=== PATIENT | male | born 1990 | race Caucasian/White ===

== ENCOUNTER 2017-11-07 17:45 | Emergency (ER) | payer SELFPAY ==
[2017-11-07 17:53] VITALS: BP 148/95; PULSE 112; TEMP 100; BMI 46.6
[2017-11-07] MEDS ORDERED: ACETAMINOPHEN 325 MG TABLET (FP) PO ONE (17:53)
--- NOTE | 2017-11-07 17:53 | PDOC ---
Rapid Medical Evaluation Chief Complaint: Cold Symptoms Time Seen by Provider: 11/07/17 17:51 Medical Evaluation: Allergies Allergy/AdvReac Type Severity Reaction Status Date / Time No Known Allergies Allergy Verified 11/07/17 17:49 11/07/17 17:51 I have performed a brief in-person evaluation of this patient. The patient presents with a chief complaint of: Body aches w/ cough, congestion , nausea and fever x 3 days. Denies pmhx Pertinent physical exam findings:Febrile to 100 and tachy to 116 I have ordered the following: tylenol The patient will proceed to the ED for further evaluation.
--- NOTE | 2017-11-07 18:39 | PDOC ---
History of Present Illness - General Chief Complaint: Cold Symptoms Stated Complaint: COLD SYMPTOMS Time Seen by Provider: 11/07/17 17:51 History Source: Patient Exam Limitations: No Limitations - History of Present Illness Initial Comments: 11/07/17 18:41 27-year-old male with no medical history presents to the emergency department complaining of subjective fever, nonproductive cough, nasal congestion, body aches with mild nausea 3 days without headache, dizziness, lightheadedness, facial pains, rhinorrhea, earaches, sore throat, neck pain/stiffness, chest pain, shortness of breath, back pains, abdominal pains, flank pains, urinary symptoms. Patient's been taking [id number] supportive care with relief. Timing/Duration: reports: other (x3d) Associated Symptoms: reports: cough, fever/chills (subjective), other (bodyaches ) Past History - Past Medical History Allergies/Adverse Reactions: Allergies Allergy/AdvReac Type Severity Reaction Status Date / Time No Known Allergies Allergy Verified 11/07/17 17:49 Home Medications: Ambulatory Orders Azithromycin [Zithromax -] 250 mg PO UTDICT #6 tab 11/07/17 COPD: No - Immunization History Immunization Up to Date: No - Suicide/Smoking/Psychosocial Hx Smoking Status: No Smoking History: Never smoked Have you smoked in the past 12 months: No Number of Cigarettes Smoked Daily: 0 Information on smoking cessation initiated: No Hx Alcohol Use: No (1 x wk) Drug/Substance Use Hx: No Substance Use Type: Alcohol Review of Systems - Review of Systems Able to Perform ROS?: Yes Comments:: 11/07/17 18:41 CONSTITUTIONAL: +fever/subjective, nasal congestion, Absent: chills, diaphoresis, generalized weakness, malaise, loss of appetite HEENT: Absent: rhinorrhea, throat pain, throat swelling, difficulty swallowing, mouth swelling, ear pain, eye pain, visual Changes CARDIOVASCULAR: Absent: chest pain, loss of consciousness, palpitations, irregular heart rate, peripheral edema RESPIRATORY: +cough Absent: shortness of breath, dyspnea with exertion, orthopnea, wheezing, stridor, hemoptysis GASTROINTESTINAL: Absent: abdominal pain, abdominal distension, nausea, vomiting, diarrhea, constipation, melena, hematochezia GENITOURINARY: Absent: dysuria, frequency, urgency, hesitancy, hematuria, flank pain, genital pain MUSCULOSKELETAL: +bodyaches Absent: myalgia, arthralgia, joint swelling SKIN: Absent: rash, itching, pallor HEMATOLOGIC/IMMUNOLOGIC: Absent: easy bleeding, easy bruising, lymphadenopathy, frequent infections ENDOCRINE: Absent: unexplained weight gain, unexplained weight loss, heat intolerance, cold intolerance NEUROLOGIC: Absent: headache, focal weakness or paresthesias, dizziness, unsteady gait, seizure, mental status changes, bladder or bowel incontinence Is the patient limited Gibraltarian proficient: No *Physical Exam - Vital Signs Last Vital Signs Temp Pulse Resp BP Pulse Ox 100.0 F H 112 H 18 148/95 100 11/07/17 17:51 11/07/17 17:51 11/07/17 17:51 11/07/17 17:51 11/07/17 17:51 - Physical Exam Comments: 11/07/17 18:41 GENERAL: Well developed, well nourished. Awake and alert. No acute distress. HEENT: Normocephalic, atraumatic. PERRLA, EOMI. No conjunctival pallor. Sclera are non- icteric. Moist mucous membranes. Oropharynx is clear. NECK: Supple. Full ROM. No JVD. Carotid pulses 2+ and symmetric, without bruits. No thyromegaly. No lymphadenopathy. CARDIOVASCULAR: Regular rate and rhythm. No murmurs, rubs, or gallops. Distal pulses are 2+ and symmetric. PULMONARY: No evidence of respiratory distress. Lungs clear to auscultation bilaterally. No wheezing, rales or rhonchi. ABDOMINAL: Soft. Non-tender. Non-distended. No rebound or guarding. No organomegaly. Normoactive bowel sounds. MUSCULOSKELETAL Normal range of motion at all joints. No bony deformities or tenderness. No CVA tenderness. EXTREMITIES: No cyanosis. No clubbing. No edema. No calf tenderness. SKIN: Warm and dry. Normal capillary refill. No rashes. No jaundice. NEUROLOGICAL: Alert, awake, appropriate. Cranial nerves 2-12 intact. No deficits to light touch and temperature in face, upper extremities and lower extremities. No motor deficits in the in face, upper extremities and lower extremities. Normoreflexic in the upper and lower extremities. Normal speech. Toes are down- going bilaterally. Gait is normal without ataxia. ED Treatment Course - Medications Given in the ED: ED Medications Discontinued Medications Generic Name Dose Route Start Last Admin Trade Name Kath PRN Reason Stop Dose Admin Acetaminophen 650 mg 11/07/17 17:53 11/07/17 17:54 Tylenol - PO 11/07/17 17:54 650 mg ONCE ONE Administration Progress Note - Progress Note Progress Note: Patient was offered influenza swab, informed if positive, no prescription needed due to 3 days symptoms. Symptoms within 48 hours will need antibiotics. Medical Decision Making - Medical Decision Making 11/07/17 18:52 27-year-old male with no medical history complaining of cough, nasal congestion , subjective fever and body aches 3 days. Patient is afebrile for the past 24 hours. Patient's been taking [id number] supportive care with relief. Body aches and subjective fever for more than 3 days, patient declined influenza swab. Patient was informed his influenza came back positive, supportive care. CXR neg Patient was given Tylenol at triage, heart rate came down to 90 bpm. *DC/Admit/Observation/Transfer Diagnosis at time of Disposition: Acute bronchitis Qualifiers: Bronchitis organism: unspecified organism Qualified Code(s): J20.9 - Acute bronchitis, unspecified - Discharge Dispostion Condition at time of disposition: Stable Admit: No - Prescriptions Prescriptions: Azithromycin [Zithromax -] 250 mg PO UTDICT #6 tab - Referrals Referrals: Usama Martin MD [Staff Physician] - - Patient Instructions Printed Discharge Instructions: DI for Acute Bronchitis Additional Instructions: Rest Increase fluids Tylenol alternating with Motrin as needed for pain/fever Follow up with your physician within 48 hours Return to the ER for severe/persistent/worsening symptoms - Post Discharge Activity Forms/Work/School Notes: Back to Work
== END 2017-11-07 19:27 | disposition home or self-care (01) ==
LOC: JERFT 17:45
DX: J20.9 Acute bronchitis, unspecified (principal)
CPT/HCPCS: 71046-TC; 99281-25

== ENCOUNTER 2018-12-24 22:34 | Emergency (ER) | payer OTHER ==
[2018-12-24 22:52] VITALS: TEMP 97.5; BMI 50.2
[2018-12-24] MEDS ORDERED: diazePAM 5 MG TABLET PO ONE (23:26)
[2018-12-24] MEDS ORDERED: KETOROLAC TROMETHAMINE 30 MG/1 ML VIAL IM ONE (23:26)
[2018-12-24] MEDS ORDERED: diazePAM 5 MG TABLET ONE (23:28)
[2018-12-24] MEDS ORDERED: KETOROLAC TROMETHAMINE 30 MG/1 ML VIAL ONE (23:28)
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
[2018-12-25 01:00] VITALS: BP 141/84; PULSE 78
[2018-12-25 02:12] LABS: BASO % 1.5 % (0-2.0); EOS % 2.5 % (0-4.5); HEMATOCRIT 44.3 % (35.4-49); HEMOGLOBIN 15.4 GM/dL (11.7-16.9); LYMPH % 40.1 % (8-40); MCH 30.2 pg (25.7-33.7); MCHC 34.9 g/dl (32.0-35.9); MEAN CELL VOLUME 86.5 fl (80-96); MEAN PLT VOLUME 8.2 fl (7.5-11.1); NEUT % 47.9 % (42.8-82.8); PLATELET COUNT 332 K/MM3 (134-434); RBC 5.11 M/mm3 (4.00-5.60); RDW 13.1 % (11.9-15.9); WHITE BLOOD COUNT 11.7 K/mm3 (4.0-10.0)
[2018-12-25 02:35] LABS: URINE APPEARANCE CLEAR; URINE BILIRUBIN NEGATIVE (<2.0 mg/dL); URINE COLOR YELLOW; URINE GLUCOSE (UA) NEGATIVE (NEGATIVE); URINE KETONE NEGATIVE (NEGATIVE); URINE LEUK ESTERASE NEGATIVE (NEGATIVE); URINE NITRITE NEGATIVE (NEGATIVE); URINE PROTEIN 1+ (NEGATIVE)
[2018-12-25 02:47] LABS: ALBUMIN 3.6 g/dl (3.4-5.0); ALK PHOS 88 U/L (45-117); ANION GAP 6 MMOL/L (8-16); BILIRUBIN,TOTAL 0.2 mg/dL (0.2-1); BLOOD UREA NITROGEN 24 mg/dL (7-18); CHLORIDE 106 mmol/L (98-107); CO2 28 mmol/L (21-32); CREATININE 0.9 mg/dL (0.55-1.3); GLUCOSE,RANDOM 143 mg/dL (74-106); POTASSIUM 4.2 mmol/L (3.5-5.1); SGOT/AST 21 U/L (15-37); SGPT/ALT 35 U/L (13-61); SODIUM 140 mmol/L (136-145); TOT PROT 7.4 g/dl (6.4-8.2)
[2018-12-25 02:59] LABS: EPI CELLS RARE /HPF (FEW); URINE MUCUS RARE
== END 2018-12-25 05:59 | disposition home or self-care (01) ==
LOC: JER 22:34
PROC: 3E0233Z Introduction of Anti-inflammatory into Muscle, Percutaneous Approach (ICD-10-PCS; principal; 2018-12-24)
DX: M62.830 Muscle spasm of back (principal); V43.62XA Car passenger injured in collision with other type car in traffic accident, initial encounter; Y92.414 Local residential or business street as the place of occurrence of the external cause; Y93.89 Activity, other specified; Y99.8 Other external cause status; I10 Essential (primary) hypertension
CPT/HCPCS: 36415; 71275-TC; 72100-TC-FY; 74174-TC; 80053; 81003; 81015; 85025; 96372; 99282-25

== ENCOUNTER 2023-11-01 01:16 | Emergency (ER) | payer OTHER ==
[2023-11-01 01:34] VITALS: BP 134/77; PULSE 116; RESP 18; TEMP 101.5; BMI 44.4
[2023-11-01] MEDS ORDERED: LACTATED RINGERS SOLUTION 1000 ML INFUS.BAG IV ONE (02:42)
[2023-11-01] MEDS ORDERED: METOCLOPRAMIDE HCL INJECTION 10 MG/2 ML VIAL IVPUSH ONE (02:42)
[2023-11-01] MEDS ORDERED: ACETAMINOPHEN 1000 MG/100 ML BAG IVPB ONE (02:42)
[2023-11-01] MEDS ORDERED: ACETAMINOPHEN INJECTION 100 ML IVPB ONE (02:45)
[2023-11-01] MEDS ORDERED: METOCLOPRAMIDE HCL INJECTION 10 MG/2 ML VIAL ONE (02:45)
[2023-11-01 03:03] LABS: HEMATOCRIT 45.1 % (35.4-49); HEMOGLOBIN 15.4 GM/dL (11.7-16.9); MCH 27.6 pg (25.7-33.7); MCHC 34.1 g/dl (32.0-35.9); MEAN PLT VOLUME 7.7 fl (7.5-11.1); PLATELET COUNT 309 10^3/uL (134-434); RBC 5.56 M/mm3 (4.00-5.60); RDW 13.1 % (11.9-15.9); WHITE BLOOD COUNT 10.3 K/mm3 (4.0-10.0)
[2023-11-01 03:22] LABS: POTASSIUM 4.2 mmol/L (3.5-5.1)
[2023-11-01 03:24] LABS: CALCIUM 9.1 mg/dL (8.5-10.1)
[2023-11-01 03:25] LABS: ALBUMIN 3.5 g/dl (3.4-5.0); BLOOD UREA NITROGEN 13.4 mg/dL (7-18)
[2023-11-01 03:28] LABS: CREATININE 0.8 mg/dL (0.55-1.3)
[2023-11-01 03:29] LABS: BILIRUBIN,TOTAL 0.4 mg/dL (0.2-1); TOT PROT 7.4 g/dl (6.4-8.2)
[2023-11-01] MEDS ORDERED: ACETAMINOPHEN 325 MG TABLET (FP) ONE (04:16)
[2023-11-01 04:21] LABS: HIV INTERPRETATION NEGATIVE (NEGATIVE)
[2023-11-01 05:43] LABS: ANISOCYTOSIS 3+; MACROCYTOSIS 0; ROULEAU 2+
== END 2023-11-01 04:36 | disposition home or self-care (01) ==
LOC: JER 01:16
DX: R51.9 Headache, unspecified (principal); R05.9 Cough, unspecified; U07.1 COVID-19
CPT/HCPCS: 0241U-QW; 36415; 71046-TC-FY; 80053; 85025; 87389; 99284-25

== ENCOUNTER 2024-08-03 01:01 | Inpatient (IN) | payer OTHER ==
[2024-08-03] MEDS ORDERED: VANCOMYCIN 1 GRAM (PRE-DOCKED) 1,000 MG/250 ML BAG IVPB ONE (02:27)
[2024-08-03] MEDS: VANCOMYCIN 1,000 MG in DEXTROSE 5%-WATER - 250 ML IVPB ONE (02:49)
[2024-08-03] MEDS: ACETAMINOPHEN 500 MG TABLET (FP) PO ONE (02:49)
[2024-08-03] MEDS ORDERED: ACETAMINOPHEN 325 MG TABLET (FP) ONE (02:50)
[2024-08-03 02:57] LABS: BASO % 1.2 % (0-2.0); EOS % 1.5 % (0-4.5); LYMPH % 28.8 % (8-40); MCH 28.4 pg (25.7-33.7); MCHC 34.8 g/dl (32.0-35.9); MEAN CELL VOLUME 81.5 fl (80-96); MEAN PLT VOLUME 8.6 fl (7.5-11.1); MONO % 10.4 % (3.8-10.2); NEUT % 58.1 % (42.8-82.8); PLATELET COUNT 396 10^3/uL (134-434); RBC 5.64 M/mm3 (4.00-5.60); RDW 13.3 % (11.9-15.9); WHITE BLOOD COUNT 10.7 K/mm3 (4.0-10.0)
[2024-08-03 03:26] LABS: POTASSIUM 4.7 mmol/L (3.5-5.1)
[2024-08-03 03:28] LABS: ALBUMIN 3.3 g/dl (3.4-5.0); BLOOD UREA NITROGEN 16.8 mg/dL (7-18); CALCIUM 9.6 mg/dL (8.5-10.1)
[2024-08-03 03:31] LABS: CREATININE 1.1 mg/dL (0.55-1.3)
[2024-08-03 03:33] LABS: BILIRUBIN,TOTAL 0.4 mg/dL (0.2-1); TOT PROT 7.6 g/dl (6.4-8.2)
[2024-08-03] MEDS: AMPICILLIN NA/SULBACTAM NA 3 GM in SODIUM CHLORIDE 100 ML IVPB ONE (04:14)
[2024-08-03] MEDS: SODIUM CHLORIDE 0.9% 500 ML INFUS.BAG IV ONE (04:14)
[2024-08-03] MEDS ORDERED: KETOROLAC TROMETHAMINE 15 MG/ML VIAL ONE (05:16)
[2024-08-03] MEDS: KETOROLAC TROMETHAMINE 15 MG/ML VIAL IVPUSH ONE (05:20)
[2024-08-03] MEDS ORDERED: INSULIN (LEVEMIR) 100 UNITS/ML UNITS SQ ONE (05:36)
[2024-08-03] MEDS: SODIUM CHLORIDE 1,000 ML IV SCH (05:56)
[2024-08-03] MEDS: INSULIN (LEVEMIR) 100 UNITS/ML UNITS SQ ONE (05:56)
[2024-08-03] MEDS: INSULIN ASPART SLIDING SCALE (NOVOLOG) 1 VIAL SQ SCH (07:34)
[2024-08-03] MEDS ORDERED: CEFTRIAXONE 1 GM/50 ML BAG ONE (11:12)
[2024-08-03] MEDS ORDERED: CEFTRIAXONE 2 GM/100 ML BAG IVPB ONE (11:15)
[2024-08-03] MEDS: CEFTRIAXONE 2 GM in DEXTROSE 5%-WATER 100 ML IVPB SCH (11:21)
[2024-08-03] MEDS ORDERED: LIDOCAINE 1%/EPI 1:100000 (20 ML MULTI DOSE VIAL) ONE (12:30)
[2024-08-03] MEDS: LIDOCAINE 1.5%-EPINEPHRINE 1:200,000/PF 30 ML VIAL IJ ONE (13:19)
[2024-08-03] MEDS ORDERED: ACETAMINOPHEN INJECTION 100 ML ONE (14:13)
[2024-08-03] MEDS: ACETAMINOPHEN 1000 MG/100 ML BAG IVPB PRN (14:17)
[2024-08-03] MEDS: VANCOMYCIN PREMIX 1.5 GM 1,500 MG/300 ML BAG IVPB SCH (14:29)
[2024-08-03] MEDS ORDERED: MORPHINE SULFATE 2 MG/ML SYRINGE ONE (16:18)
[2024-08-03] MEDS: MORPHINE SULFATE 2 MG/ML SYRINGE IVPUSH ONE (16:27)
[2024-08-03 20:27] VITALS: RESP 18; BMI 46.0
[2024-08-03] MEDS: INSULIN (LEVEMIR) 100 UNITS/ML UNITS SQ SCH (21:52)
[2024-08-03] MEDS: KETOROLAC TROMETHAMINE 15 MG/ML VIAL IVPUSH PRN (21:54)
[2024-08-04 09:21] LABS: HEMATOCRIT 43.9 % (35.4-49); HEMOGLOBIN 15.1 GM/dL (11.7-16.9); MCHC 34.4 g/dl (32.0-35.9); MEAN CELL VOLUME 81.3 fl (80-96); MEAN PLT VOLUME 7.8 fl (7.5-11.1); PLATELET COUNT 329 10^3/uL (134-434); RDW 13.2 % (11.9-15.9); WHITE BLOOD COUNT 8.8 K/mm3 (4.0-10.0)
[2024-08-04 10:02] LABS: BLOOD UREA NITROGEN 11.9 mg/dL (7-18)
[2024-08-04 10:03] LABS: MAGNESIUM 1.8 mg/dL (1.8-2.4)
[2024-08-04 10:06] LABS: CALCIUM 9.2 mg/dL (8.5-10.1); CREATININE 0.6 mg/dL (0.55-1.3)
[2024-08-04 10:07] LABS: PHOSPHOROUS 3.2 mg/dL (2.5-4.9)
[2024-08-04 10:08] LABS: BILIRUBIN,TOTAL 0.6 mg/dL (0.2-1); TOT PROT 6.8 g/dl (6.4-8.2)
[2024-08-04] MEDS: VANCOMYCIN PREMIX 1.5 GM 1,500 MG/300 ML BAG IVPB SCH (14:44)
[2024-08-05 10:11] LABS: HEMOGLOBIN 14.9 GM/dL (11.7-16.9); MCHC 33.8 g/dl (32.0-35.9); MEAN CELL VOLUME 82.7 fl (80-96); MEAN PLT VOLUME 7.9 fl (7.5-11.1); PLATELET COUNT 326 10^3/uL (134-434); RBC 5.32 M/mm3 (4.00-5.60); RDW 12.8 % (11.9-15.9); WHITE BLOOD COUNT 7.7 K/mm3 (4.0-10.0)
[2024-08-05] MEDS ORDERED: INSULIN (LEVEMIR) 100 UNITS/ML UNITS SQ SCH (10:47)
[2024-08-05 10:48] LABS: CALCIUM 9.1 mg/dL (8.5-10.1)
[2024-08-05 10:49] LABS: ALBUMIN 2.8 g/dl (3.4-5.0); BLOOD UREA NITROGEN 12.1 mg/dL (7-18)
[2024-08-05 10:50] LABS: CREATININE 0.6 mg/dL (0.55-1.3)
[2024-08-05 10:52] LABS: BILIRUBIN,TOTAL 0.5 mg/dL (0.2-1); TOT PROT 6.7 g/dl (6.4-8.2)
[2024-08-05 11:06] VITALS: BP 128/88; PULSE 85; TEMP 97.9
[2024-08-05] MEDS: ACETAMINOPHEN 325 MG TABLET (FP) PO PRN (11:35)
== END 2024-08-05 15:43 | disposition home or self-care (01) | DRG 383 ==
LOC: JER 01:01 → JERBED 03:18 → OBSVTOIN 05:17 → J6S 20:03 → J8W 08-04 17:08
PROVIDERS: ADMIT Internal Medicine; ATTEND Nurse Practitioner Family
PROC: 0W983ZZ Drainage of Chest Wall, Percutaneous Approach (ICD-10-PCS; principal; 2024-08-03)
DX: L03.313 Cellulitis of chest wall (principal); E11.65 Type 2 diabetes mellitus with hyperglycemia; I10 Essential (primary) hypertension; E66.01 Morbid (severe) obesity due to excess calories; Z68.42 Body mass index [BMI] 45.0-49.9, adult; L02.213 Cutaneous abscess of chest wall
CPT/HCPCS: 36415; 76604; 80053; 82962; 83036; 83735; 84100; 85025; 85027; 87040; 87070; 87075; 87081; 87186; 87205; 93005; 93010; 99285-25; G0378; G0480; J0131

== ENCOUNTER 2025-02-28 13:28 | Emergency (ER) | payer OTHER ==
[2025-02-28 13:35] VITALS: BP 115/79; PULSE 87; RESP 16; TEMP 98.6; BMI 48.7
== END 2025-02-28 14:20 | disposition home or self-care (01) ==
LOC: JERFT 13:28
DX: Z48.01 Encounter for change or removal of surgical wound dressing (principal)
CPT/HCPCS: 99281-25